=== PATIENT | male | born 1940 | race Caucasian/White ===

== ENCOUNTER 2016-11-02 09:57 | Emergency (ER) | payer MEDICARE ==
[~2016-11-02] VITALS: Ht 172.7 cm; Wt 94.8 kg
[~2016-11-02 09:57] MED LIST: LISI-357 PO; OMEP20TA39 PO; PRED20 PO; TYLE3 PO; VESI5TAB PO
[2016-11-02 10:08] VITALS: BP 164/91; PULSE 91; RESP 17; TEMP 98; O2SAT 97
[2016-11-02] MEDS ORDERED: TOLT1CAP PO (10:29)
[2016-11-02] MEDS ORDERED: OMEP20TA PO (10:29)
[2016-11-02] MEDS ORDERED: LOSA100T PO (10:29)
--- NOTE | 2016-11-02 10:35 | PD ---
HPI Chief Complaint: Eye Problems/Injury Time Seen by Provider: 10:26 Travel History International Travel<30 days: No Contact w/Intl Traveler<30days: No Traveled to known affect area: No History of Present Illness HPI 76-year-old male complains of swelling about the eyes and initially the left side followed by the right side. No tenderness. No diplopia. No pain with range of motion of the eyes. No fever. [place] He notes some minimal rhinorrhea. Claritin seemed to help. PFSH Past Medical History Diminished Hearing: No GERD: Yes Genitourinary: Yes (LEAKING) Hypertension: Yes Immunizations Current: Yes Social History Alcohol Use: No Tobacco Use: No Substance Use: No Allergies-Medications (Allergen,Severity, Reaction): Coded Allergies: No Known Allergies (Unverified , 09/05/14) Reported Meds & Prescriptions Reported Meds & Active Scripts Active Reported Omeprazole 20 Mg Tab 20 Mg PO DAILY Losartan (Losartan Potassium) 100 Mg Tab 100 Mg PO DAILY Tolterodine ER (Tolterodine Tartrate) 4 Mg Cap 4 Mg PO DAILY Review of Systems General / Constitutional: No: Fever Eyes: No: Visual changes Physical Exam Narrative GENERAL: SKIN: Warm and dry. HEAD: Normocephalic. EYES: No scleral icterus. No injection or drainage. No evidence conjunctivitis. On along the right eye there is trace erythema and edema involving the medial aspect of the upper and lower lids without tenderness warmth or induration. NECK: Supple, trachea midline. No JVD or lymphadenopathy. CARDIOVASCULAR: Regular rate and rhythm without murmurs, gallops, or rubs. RESPIRATORY: Breath sounds equal bilaterally. No accessory muscle use. GASTROINTESTINAL: Abdomen soft, non-tender, nondistended. MUSCULOSKELETAL: No cyanosis, or edema. BACK: Nontender without obvious deformity. No CVA tenderness. Data Data Last Documented VS Vital Signs Date Time Temp Pulse Resp B/P (MAP) Pulse Ox O2 Delivery O2 Flow Rate FiO2 11/02/16 11:01 11/02/16 10:08 98.0 91 17 97 Orders Orders Dexamethasone Inj (Decadron Inj) (11/02/16 10:45) Diphenhydramine (Benadryl) (11/02/16 10:45) [facility] Medical Decision Making Medical Screen Exam Complete: Yes Emergency Medical Condition: Yes Differential Diagnosis Periorbital cellulitis, post-septal cellulitis, conjunctivitis, allergies Narrative Course Presentation appears to be allergenic in nature. Decadron IM. Follow-up with primary care. Return precautions discussed. Diagnosis Primary Impression: Swelling of eyelid Qualified Codes: H02.849 - Edema of unspecified eye, unspecified eyelid Referrals: Primary Care Physician 2 days Additional Instructions: You have a choice when it comes to health care, and we are glad that you chose [facility]. Hopefully, we have met your expectations on today's visit. You are welcome to return to [facility] at any time, as we are committed to meeting the health care needs of our community. Med/Other Pt SpecificInfo: No Change to Meds Disposition: 01 DISCHARGE HOME Condition: Shahriar Rai MD Nov 02, 2016 10:34
[2016-11-02] MEDS ORDERED: diphenhydrAMINE HCL 50 MG CAP PO ONE (10:45)
[2016-11-02] MEDS ORDERED: DEXAMETHASONE SOD PHOS 4 MG/ML VIAL IM ONE (10:45)
== END 2016-11-02 11:02 | disposition home or self-care (01) ==
LOC: PHED 09:57
DX: H02.849 Edema of unspecified eye, unspecified eyelid (principal); I10 Essential (primary) hypertension; K21.9 Gastro-esophageal reflux disease without esophagitis
CPT/HCPCS: 96372; 99284; J1100; Q0163